=== PATIENT | male | born 1980 | race Caucasian/White ===

== ENCOUNTER 2021-04-22 01:34 | Inpatient (IN) | payer OTHER ==
[~2021-04-22] VITALS: Ht 167.6 cm; Wt 152.2 kg
[2021-04-22] VITALS (7 sets, daily range): BP systolic 112–173; BP diastolic 56–78
[2021-04-22] MEDS ORDERED: HYDR-2868 PO (02:51)
[2021-04-22] MEDS ORDERED: NYST15OI TP (02:51)
[2021-04-22] MEDS ORDERED: ASCO500T3 PO (02:51)
[2021-04-22] MEDS ORDERED: OXYC5CAP PO (02:51)
[2021-04-22] MEDS ORDERED: ASPI-886 PO (02:51)
[2021-04-22] MEDS ORDERED: MULT-638 PO (02:51)
[2021-04-22] MEDS ORDERED: LOSA25TA PO (02:51)
[2021-04-22] MEDS ORDERED: ACET325T21 PO (02:51)
[2021-04-22] MEDS ORDERED: DOXY100T PO (02:51)
[2021-04-22] MEDS ORDERED: BUPR150T15 PO (02:51)
[2021-04-22] MEDS ORDERED: ZINC220C4 PO (02:51)
[2021-04-22] MEDS ORDERED: VENTOLIN HFA18 GM INH (02:51)
[2021-04-22] MEDS ORDERED: POLY17PO29 PO (02:51)
[2021-04-22] MEDS ORDERED: PRED20TA PO (02:51)
[2021-04-22] MEDS ORDERED: ATOR40TA59 PO (02:51)
[2021-04-22] MEDS ORDERED: MUPI22OI2 TP (02:51)
[2021-04-22] MEDS ORDERED: BETA15CR4 TP (02:51)
[2021-04-22] MEDS ORDERED: TRAM50TA PO (02:51)
[2021-04-22] MEDS ORDERED: WARF-31 PO ×2 (02:51)
[2021-04-22] MEDS ORDERED: PANT40TA77 PO (02:51)
[2021-04-22] MEDS ORDERED: MELA3TAB4 PO (02:51)
[2021-04-22] MEDS ORDERED: WARF3TAB50 PO (02:51)
[2021-04-22] MEDS ORDERED: CARB15DR3 EACHEYE (02:51)
[2021-04-22] MEDS ORDERED: SPIR50TA4 PO (02:51)
[2021-04-22] MEDS ORDERED: FURO80TA72 PO (02:51)
[2021-04-22] MEDS ORDERED: CHOL10004 PO (02:51)
[2021-04-22] MEDS ORDERED: FERR325T14 PO (02:51)
[2021-04-22] MEDS ORDERED: BUDE10.2 IH (02:51)
[2021-04-22] MEDS ORDERED: CARV6.2511 PO (02:51)
[2021-04-22] MEDS ORDERED: IPRA3AMP29 NEB (02:57)
[2021-04-22] MEDS ORDERED: VITS42.55 TP (02:57)
[2021-04-22 05:01] LABS: BASO % 0 % (0-3); EOS % 0 % (0-3); HEMOGLOBIN 9.2 g/dL (13.0-17.5); LYMPH # 0.7 x10^3/uL (1.0-4.8); LYMPH % 6 % (24-48); MEAN CORPUSCULAR HEMOGLOBIN 24 pg (25-35); MEAN CORPUSCULAR HGB CONC 31 g/dL (31-37); MEAN CORPUSCULAR VOLUME 79 fL (79-100); MONO # 0.6 x10^3/uL (0.0-1.1); MONO % 5 % (0-9); NEUT # 9.9 x10^3/uL (1.8-7.7); NEUT % 88 % (31-73); PLATELET COUNT 411 x10^3/uL (140-400); RED BLOOD COUNT 3.81 x10^6/uL (4.30-5.70); WHITE BLOOD COUNT 11.3 x10^3/uL (4.0-11.0)
[2021-04-22 05:28] LABS: ALBUMIN 2.9 g/dL (3.4-5.0); ALBUMIN/GLOBULIN RATIO 0.6 (1.0-1.7); CALCIUM 9.1 mg/dL (8.5-10.1); CREATININE 0.6 mg/dL (0.7-1.3); POTASSIUM 4.3 mmol/L (3.5-5.1); TOTAL BILIRUBIN 0.9 mg/dL (0.2-1.0); TOTAL PROTEIN 7.9 g/dL (6.4-8.2)
[2021-04-22 05:29] LABS: PROTHROMBIN TIME PATIENT 24.4 SEC (11.7-14.0)
[2021-04-22 09:12] LABS: BASE EXCESS ABG 17 mmol/L (-3-3); HCO3 ABG 45 mmol/L (21-28); PO2 ABG 79 mmHg (75-108); SAT O2 ABG 95 % (92-99)
[2021-04-22 09:29] LABS: FIO2 ABG 45; PCO2 ABG 73 mmHg (35-46)
[2021-04-22] MEDS ORDERED: PIP/TAZO PER PHARMACY MC PRN (09:30)
--- NOTE | 2021-04-22 09:42 | CONS ---
DATE OF CONSULTATION: 04/22/2021 PULMONARY CONSULTATION ATTENDING PHYSICIAN: Dr. Hampton. REASON FOR CONSULTATION: Respiratory failure. HISTORY OF PRESENT ILLNESS: The patient is a 41-year-old morbidly obese male with a BMI of 125. The patient has a history of anemia, dyslipidemia, hypertension, DVT, for which he is on Coumadin and morbid obesity. He presented to [facility] with shortness of breath. The patient has some cough. No chest pain. No fever, no chills. He is vaccinated with COVID. His arterial blood gases were highly abnormal with a pH of 7.31 with a pCO2 of 99 and a pO2 of 88 on 50% FiO2. He is now transferred to our facility for further care. He is awake, following commands. Currently, he is on BiPAP at a pressure of 24/6, rate of 20, and 45% FiO2. Arterial blood gases have been drawn and they are pending. His chest x-ray from [place] was reviewed. It shows bilateral infiltrates with more lung infiltrates on the right side. The patient denies any nausea, vomiting. No diarrhea, no dysuria. PAST MEDICAL HISTORY: Significant for anemia, history of DVT/ PE, hypertension, morbid obesity. History of obstructive sleep apnea, but not on CPAP or BiPAP. PAST SURGICAL HISTORY: Cholecystectomy. SOCIAL HISTORY: Nonsmoker. ALLERGIES: VANCOMYCIN. REVIEW OF SYSTEMS: A 12-point system obtained. Pertinent positives discussed in my present illness, otherwise noncontributory. All systems that were negative, were reviewed as well. MEDICATIONS: From [facility] were reviewed. FAMILY HISTORY: Noncontributory to lungs. PHYSICAL EXAMINATION: GENERAL: He is awake, following commands, on BiPAP. VITAL SIGNS: Blood pressure is stable, in fact systolic on the high side, pulse ox is 98%. Afebrile with a T-max of 99. NECK: Supple. LUNGS: With diminished breath sounds bilaterally. CARDIOVASCULAR: With a regular rate. ABDOMEN: Soft, markedly obese. EXTREMITIES: With lymphedema of lower extremity. LABORATORY DATA: Reviewed. White cell count 11.3, hemoglobin 9.2 and platelets are 411. BUN 17, creatinine 0.6. INR is 2.2. IMPRESSION: 1. Acute on chronic hypercapnic respiratory failure, likely secondary to combination of cor pulmonale as well as possible pneumonia. 2. Morbidly obese with a body mass index of 125 and history of obstructive sleep apnea and obesity hypoventilation syndrome. The patient is not on CPAP or BiPAP. 3. Abnormal chest x-ray consistent with congestive heart failure, but cannot exclude pneumonia. 4. Mild leukocytosis. 5. History of deep venous thrombosis/ PE, for which he is on Coumadin with therapeutic INR. 6. The patient is updated on COVID vaccine. RECOMMENDATIONS: 1. Continue present BiPAP at the present setting. Follow ABGs and make necessary adjustments. 2. Advanced directives were discussed with the patient and he wants to be full code. 3. Diuresis. 4. Obtain echocardiogram. 5. Empiric antibiotic, Zosyn. 6. Continue Coumadin and follow INR per PCP. Discussed with Dr. Hampton, discussed with the patient, discussed with RN. Chart reviewed, imaging studies reviewed. Critical care time 35 minutes including decision making. MICHELLE GARCIA: [place] TID: [id number] [facility]
[2021-04-22] MEDS ORDERED: POLYETHYLENE GLYCOL 3350 17 GM PACKET. PO PRN (09:45)
[2021-04-22] MEDS ORDERED: VITS A & D/LANOLIN TOPICAL OINTMENT 42GM TUBE. TP PRN (09:45)
[2021-04-22] MEDS ORDERED: NON FORMULARY ITEM (Albuterol Sulfate (Ventolin Hfa Inhaler) 2 PUFF) INH SCH (09:45)
[2021-04-22] MEDS ORDERED: NYSTATIN 100,000 UNIT/GM TOPICAL OINTMENT 15GM TUBE. TP PRN (09:45)
[2021-04-22] MEDS ORDERED: hydrALAZINE 25 MG TABLET PO PRN (09:45)
[2021-04-22] MEDS ORDERED: ACETAMINOPHEN 325 MG TABLET. PO PRN (09:45)
[2021-04-22] MEDS ORDERED: traMADol 50 MG TABLET PO PRN (09:45)
[2021-04-22] MEDS ORDERED: ALBUTEROL SULFATE 2.5 MG/3 ML NEBU. NEB PRN (10:00)
[2021-04-22] MEDS ORDERED: DEXTROSE 50% 25 GM / 50ML DISP.SYRIN. IV PRN (10:00)
[2021-04-22] MEDS ORDERED: FUROSEMIDE 40 MG/4 ML VIAL. IVP ONE (10:00)
--- NOTE | 2021-04-22 10:15 | HP ---
ADMIT DATE: 04/22/2021 HISTORY OF PRESENT ILLNESS: The patient is a 41-year-old male patient, resident at [facility] who was brought to the Emergency Room of [facility] with a complaint of shortness of breath. However, he denied any chest pain. Denied any cough, phlegm or hemoptysis. He was extensively evaluated in the Emergency Room and had chest x-ray and lab work including blood gases, was diagnosed with acute on chronic hypoxic hypercapnic respiratory failure, mild leukocytosis, anemia and super morbid obesity, was started on BiPAP machine and was treated for healthcare-associated pneumonia and was transferred to [facility] for further evaluation and treatment. PAST MEDICAL HISTORY: Significant for hypertension, hyperlipidemia, chronic anemia, congestive heart failure, lymphedema, super morbid obesity and obstructive sleep apnea. He is normally on 5 liters nasal cannula. He has DVT and pulmonary embolism, for which he is on Coumadin. PAST SURGICAL HISTORY: Significant for cholecystectomy and surgery for gastric ulcer. ALLERGIES: HE IS ALLERGIC TO VANCOMYCIN. FAMILY HISTORY: Noncontributory. SOCIAL HISTORY: He is a resident at [facility], has been a resident there since January of this year. He does not smoke, drink alcohol or use recreational drugs. REVIEW OF SYSTEMS: As per history of present illness. PHYSICAL EXAMINATION: GENERAL: On arrival to the Emergency Room, the patient looked well and was clearly in no apparent respiratory distress. He was pale. No jaundice, cyanosis. No lymphadenopathy, no thyromegaly, no jugular venous distention. No limb edema. VITAL SIGNS: His heart rate was 84, blood pressure was 165/82, temperature was 98.4, respiratory rate was 18 and oxygen saturation was 95% on BiPAP machine. HEAD, EYES, EARS, NOSE, AND THROAT: Showed normocephalic, atraumatic. NECK: Supple. HEART: Showed distant first and second heart sounds. No gallop, rub or murmur. CHEST: Shows central trachea, equally reduced chest expansion, reduced air entry, vesicular breath sounds. I could not really appreciate any crepitation or rhonchi anteriorly. ABDOMEN: Usually distended, soft, nontender. NEUROLOGIC: He is awake, alert, responding appropriately. All cranial nerves intact. He is apparently able to move his extremities without difficulty, although he is mostly bedbound. SKIN: Has multiple wounds in the posterior aspect of his thighs. LABORATORY WORK: On arrival there showed a serum sodium 138, potassium 4, chloride 96, bicarbonate 42, anion gap of 0, BUN 21, creatinine 0.6. Estimated GFR was 150 mL per minute. His glucose was 181. Lactic acid is 1.3, calcium was 8.4. Total bilirubin is normal. AST, ALT, alkaline phosphatase slightly elevated. His beta natriuretic peptide was 395. Total protein 7.4, albumin is 3. His white cell count was 12,100, hemoglobin 9.7, hematocrit 32, MCV 80 and platelet count of 407,000 with normal manual differential. His prothrombin time/INR and APTT are all elevated. He is on Coumadin and his INR is within therapeutic range. His arterial blood gases initially showed a pH of 7.31, pCO2 of 99, pO2 of 88, bicarbonate 50 and oxygen saturation was 95% on FiO2 of 50%. His urinalysis showed the urine was yellow, clear with a pH of 5, specific gravity of 1.015. The urine was negative for protein, glucose, ketones, small amount of blood, negative for nitrite and bilirubin. There are no leukocyte esterase, 1-2 rbc's, 0 wbc's and 0 bacteria. His coronavirus by PCR and rapid testing both were negative. His chest x-ray showed the patient appears to have fairly extensive infiltrate through the right lung. The upper left lung appears relatively clear, but the left base is poorly seen. The heart is likely to at least mildly enlarged. ASSESSMENT AND PLAN: The patient was started on BiPAP machine. He was treated with IV antibiotic in the form of Zosyn and ciprofloxacin, received also dexamethasone and was transferred to [facility] with acute on chronic hypoxic hypercapnic respiratory failure, super morbid obesity. He has also healthcare-associated pneumonia, deep venous thrombosis and pulmonary embolism, hypertension, hyperlipidemia. My plan is to continue with IV antibiotic for healthcare-associated pneumonia. Continue with BiPAP machine. Continue with Coumadin and adjust the dose to maintain INR between 2 to 2.5. I will contact [facility] to get the list of his medication. RAYO GARCIA: Radha TID: [id number]
[2021-04-22 10:36] LABS: % BANDS 2 % (0-9); % LYMPHS 5 % (24-48); % MONOS 4 % (0-10); % SEGS 89 % (35-66); ANISOCYTOSIS SLIGHT; PLT ESTIMATE ADEQUATE (ADEQUATE)
[2021-04-22 10:37] LABS: POLYCHROMASIA SLIGHT
[2021-04-22] MEDS: MULTIVITAMIN with MINERAL TABLET. PO SCH (10:39)
[2021-04-22] MEDS: CARVEDILOL 6.25 MG TABLET. PO SCH ×2 (10:39→17:18)
[2021-04-22] MEDS: SPIRONOLACTONE 25 MG TABLET PO SCH (10:39)
[2021-04-22] MEDS: ASCORBIC ACID 500 MG TABLET PO SCH (10:39)
[2021-04-22] MEDS: FERROUS SULFATE 325 MG TABLET. PO SCH ×2 (10:39→17:19)
[2021-04-22] MEDS: ZINC SULFATE 220 MG CAPSULE. PO SCH (10:46)
[2021-04-22] MEDS: DOXYCYCLINE HYCLATE 100 MG TABLET PO SCH ×2 (10:46→22:13)
[2021-04-22] MEDS: buPROPion XL 150 MG TAB.ER.24H. PO SCH (10:46)
[2021-04-22] MEDS: CHOLECALCIFEROL (VITAMIN D3) 1,000 UNIT TABLET PO SCH (10:46)
[2021-04-22] MEDS: PANTOPRAZOLE 40 MG TABLET.DR. PO SCH (10:46)
[2021-04-22] MEDS: oxyCODONE IR 5 MG TABLET PO SCH ×3 (10:46→22:14)
[2021-04-22] MEDS: ASPIRIN ENTERIC COATED 81 MG TABLET.DR. PO SCH (10:46)
[2021-04-22] MEDS: BETAMETHASONE DP AUGMENTED 0.05% 15gm CREAM TUBE. TP SCH ×2 (11:00→21:00)
[2021-04-22] MEDS: MUPIROCIN 2 % OINTMENT 22GM TUBE. TP SCH (11:00)
[2021-04-22] MEDS: IPRATRPIUM/ALBUTEROL 0.5/2.5MG 3 ML NEBU. NEB SCH ×3 (12:00→20:50)
[2021-04-22] MEDS: PIPERACILLIN/TAZOBACTAM 3.375 GM in IV NORMAL SALINE 50ML 50 ML IV SCH ×3 (12:18→23:45)
[2021-04-22] MEDS: POLYVINYL ALCOHOL 1.4% OPHTH SOLUTION 15ML BOTTLE. OU SCH ×2 (14:00→21:00)
[2021-04-22] MEDS ORDERED: WARFARIN 5 MG TABLET. PO SCH (16:00)
[2021-04-22] MEDS ORDERED: WARFARIN 7.5 MG TABLET. PO SCH (16:00)
[2021-04-22] MEDS: BUDESONIDE 0.5 MG/2 ML NEBU. NEB SCH ×2 (16:35→20:50)
[2021-04-22] MEDS: predniSONE 20 MG TABLET PO SCH (17:19)
[2021-04-22] MEDS: FUROSEMIDE 80 MG TABLET. PO SCH (17:19)
--- NOTE | 2021-04-22 17:51 | NUR ---
PT TACHYCARDIC UPON DR LORENZ AND THIS RN SEEING HIM THIS MORNING, EKG ORDERED, ST WITH PACS. PT FLIPPED BACK OUT OF IT TO SR WITH PACS FOR MOST OF THE DAY UNTIL ABOUT 1700 THIS EVENING. THEN PT WENT INTO ST WITH PACS IN THE 140S TO 150S AGAIN. PAGED DR LORENZ, ORDER FOR DIGOXIN RECEIVED AND AM CARDIOLOGY CONSULT. PT IS ASYMPTOMATIC.
[2021-04-22] MEDS ORDERED: DIGOXIN IV 500 MCG/2 ML AMPUL. IV ONE (18:30)
[2021-04-22] MEDS ORDERED: DOXYCYCLINE HYCLATE 100 MG TABLET PO SCH (21:00)
[2021-04-22] MEDS ORDERED: NON FORMULARY ITEM (Melatonin 1 TAB) PO SCH (21:00)
[2021-04-22] MEDS: ATORVASTATIN CALCIUM 40 MG TABLET. PO SCH (22:13)
[2021-04-22] MEDS: LOSARTAN POTASSIUM 25 MG TABLET. PO SCH (22:13)
[2021-04-22] MEDS: DIGOXIN IV 500 MCG/2 ML AMPUL. IV SCH (23:45)
[2021-04-23 02:32] VITALS: BP 130/63
[2021-04-23] MEDS: PIPERACILLIN/TAZOBACTAM 3.375 GM in IV NORMAL SALINE 50ML 50 ML IV SCH ×3 (06:02→18:30)
[2021-04-23] MEDS: DIGOXIN IV 500 MCG/2 ML AMPUL. IV SCH (06:03)
[2021-04-23 07:00] VITALS: BP 183/67
[2021-04-23] MEDS: IPRATRPIUM/ALBUTEROL 0.5/2.5MG 3 ML NEBU. NEB SCH ×4 (07:20→21:24)
[2021-04-23] MEDS: BUDESONIDE 0.5 MG/2 ML NEBU. NEB SCH ×2 (07:20→21:25)
[2021-04-23 07:34] LABS: BASO % 0 % (0-3); EOS % 0 % (0-3); HEMOGLOBIN 9.5 g/dL (13.0-17.5); LYMPH # 1.1 x10^3/uL (1.0-4.8); LYMPH % 14 % (24-48); MEAN CORPUSCULAR HEMOGLOBIN 25 pg (25-35); MEAN CORPUSCULAR HGB CONC 32 g/dL (31-37); MEAN CORPUSCULAR VOLUME 78 fL (79-100); MONO # 0.7 x10^3/uL (0.0-1.1); MONO % 9 % (0-9); NEUT # 6.4 x10^3/uL (1.8-7.7); NEUT % 77 % (31-73); PLATELET COUNT 381 x10^3/uL (140-400); RED BLOOD COUNT 3.82 x10^6/uL (4.30-5.70); RED CELL DISTRIBUTION WIDTH 18.9 % (11.5-14.5); WHITE BLOOD COUNT 8.2 x10^3/uL (4.0-11.0)
[2021-04-23 07:40] LABS: PROTHROMBIN TIME PATIENT 21.7 SEC (11.7-14.0)
[2021-04-23 07:57] LABS: ALBUMIN 2.8 g/dL (3.4-5.0); ALBUMIN/GLOBULIN RATIO 0.6 (1.0-1.7); ALK PHOS 135 U/L (46-116); ALT (SGPT) 42 U/L (16-63); AST (SGOT) 9 U/L (15-37); BLOOD UREA NITROGEN 19 mg/dL (8-26); BUN/CREATININE RATIO 24 (6-20); CALCIUM 8.9 mg/dL (8.5-10.1); CHLORIDE 95 mmol/L (98-107); CREATININE 0.8 mg/dL (0.7-1.3); GFR 107.6; GLUCOSE 126 mg/dL (70-99); POTASSIUM 4.1 mmol/L (3.5-5.1); SODIUM 139 mmol/L (136-145); TOTAL BILIRUBIN 0.9 mg/dL (0.2-1.0); TOTAL PROTEIN 7.6 g/dL (6.4-8.2)
[2021-04-23 08:00] LABS: CARBON DIOXIDE > 45 mmol/L (21-32)
[2021-04-23] MEDS: CHOLECALCIFEROL (VITAMIN D3) 1,000 UNIT TABLET PO SCH (08:02)
[2021-04-23] MEDS: MULTIVITAMIN with MINERAL TABLET. PO SCH (08:02)
[2021-04-23] MEDS: ASCORBIC ACID 500 MG TABLET PO SCH (08:02)
[2021-04-23] MEDS: SPIRONOLACTONE 25 MG TABLET PO SCH (08:03)
[2021-04-23] MEDS: FERROUS SULFATE 325 MG TABLET. PO SCH ×2 (08:03→17:12)
[2021-04-23] MEDS: oxyCODONE IR 5 MG TABLET PO SCH ×4 (08:04→20:24)
[2021-04-23] MEDS: buPROPion XL 150 MG TAB.ER.24H. PO SCH (08:04)
[2021-04-23] MEDS: MUPIROCIN 2 % OINTMENT 22GM TUBE. TP SCH (08:04)
[2021-04-23] MEDS: ASPIRIN ENTERIC COATED 81 MG TABLET.DR. PO SCH (08:04)
[2021-04-23] MEDS: CARVEDILOL 6.25 MG TABLET. PO SCH (08:04)
[2021-04-23] MEDS: BETAMETHASONE DP AUGMENTED 0.05% 15gm CREAM TUBE. TP SCH ×2 (08:04→20:24)
[2021-04-23] MEDS: ZINC SULFATE 220 MG CAPSULE. PO SCH (08:04)
[2021-04-23] MEDS: POLYVINYL ALCOHOL 1.4% OPHTH SOLUTION 15ML BOTTLE. OU SCH ×3 (08:04→20:22)
[2021-04-23] MEDS: PANTOPRAZOLE 40 MG TABLET.DR. PO SCH (08:04)
[2021-04-23] MEDS: DOXYCYCLINE HYCLATE 100 MG TABLET PO SCH ×2 (08:36→20:24)
[2021-04-23] MEDS: LACTOBACILLUS RHAMNOSUS GG 1 CAPSULE. PO SCH ×2 (09:00→20:23)
--- NOTE | 2021-04-23 10:29 | NUR ---
NURSING REC'D CALL FROM [facility] TODAY. STAFF REQUESTING UPDATE ON MARCIE. FACILITY ALSO WANTED US TO BE AWARE OF HX OF DVT, ET RECENT C/O PAIN IN (L)LE PRIOR TO ONSET OF SOA. INFORMATION PASSED ON TO DR LORENZ THIS AM DURING ROUNDS.
[2021-04-23 11:00] VITALS: BP 149/65
--- NOTE | 2021-04-23 11:04 | PN ---
DATE: 04/23/2021 SUBJECTIVE: The patient is resting, slightly propped up in bed, in no apparent distress. He is awake, alert. He is currently on 4 liters of oxygen, maintaining his oxygen saturation at 96-97%. On questioning him, he denied any chest pain or shortness of breath. OBJECTIVE: GENERAL: When I examined him, he looked well and was clearly in no apparent respiratory distress. He was pale, not jaundiced or cyanosed. No thyromegaly. No jugular venous distention. No limb edema. VITAL SIGNS: His heart rate was 108, blood pressure was 130/63, temperature was 98.1, respiratory rate 20 and oxygen saturation was 96% on 4 liters of oxygen. HEAD, EYES, EARS, NOSE AND THROAT: Normocephalic, atraumatic. NECK: Supple. HEART: Normal first and second heart sounds. No gallop or murmur. CHEST: Clear to auscultation. No crepitation or rhonchi anteriorly. ABDOMEN: Distended, soft, nontender. NEUROLOGIC: He is awake, alert, responding appropriately. He moves upper extremities to a much good extent than lower extremities. SKIN: He has multiple wounds on the posterior aspect of his right thigh. He has an indwelling Smith catheter. His intake was incompletely recorded, output was 1000. LABORATORY DATA: As of this morning, his white cell count was 8200, hemoglobin 9.5, hematocrit 30, MCV 78 and platelet count of 381,000 with normal manual differential. His chemistry showed a serum sodium 139, potassium 4.1, chloride 95, bicarbonate 45, anion gap of 0, BUN 19, creatinine 0.8. Estimated GFR was 107 mL per minute. His glucose was 126, calcium was 8.9. Total bilirubin, AST, ALT were normal. Alkaline phosphatase slightly elevated. Total protein was 7.6, albumin was 4.8. His prothrombin time was 21.7, INR 1.9. ASSESSMENT: 1. Acute on chronic hypoxic hypercapnic respiratory failure. 2. Healthcare-associated pneumonia. 3. Morbid obesity and obstructive sleep apnea. 4. The patient also has history of deep vein thrombosis and pulmonary emboli, for which he is on Coumadin. 5. Other medical problems include hypertension and hyperlipidemia. PLAN: To continue with IV antibiotic for healthcare-associated pneumonia. Continue with BiPAP machine. Continue with Coumadin and adjust Coumadin to maintain an INR between 2-2.5. JAYJAY DR: Radha TID: [id number]
--- NOTE | 2021-04-23 11:40 | PDOC2 ---
PATRICK GAUTHIER FAMILY [employer] PAR[employer]GAL 04/23/21 1140: CARDIAC CONSULT DATE OF CONSULT Date of Consult DATE: 04/23/21 TIME: 11:33 REASON FOR CONSULT Reason for Consult: Tachycardia REFERRING PHYSICIAN Referring Physician: Dr. Hampton SOURCE Source: Chart review, Patient HISTORY OF PRESENT ILLNESS HISTORY OF PRESENT ILLNESS This is a 41 yo male who presented to [facility] secondary to shortness of breath. His ABG's were significantly abnormal and he was transferred to [facility] for higher level of care. Was noted to be tachycardic, which prompted this consult. Tele shows periods of PAFIB with RVR, otherwise is SR. No previous h/o AFIB. Reports breathing has improved. Is on chronic O2 at nursing facility. He denies any chest pain, dizziness, diaphoresis, or nausea/vomiting.. PAST MEDICAL HISTORY Past Medical History Morbid obestiy DVT/PE on warfarin therapy Hypertension Hyperlipidemia GERD Depression Anemia CHF JOSE PAST SURGICAL HISTORY Past Surgical History: Cholecystectomy FAMILY HISTORY Family History: Other (noncontributory to CV ) SOCIAL HISTORY Smoke: No ALCOHOL: none Drugs: None Lives: [facility] CURRENT MEDICATIONS CURRENT MEDICATIONS Current Medications Medications (Trade) Dose Ordered Sig/Faraz Route PRN Reason Start Time Stop Time Status Last Admin Dose Admin Piperacillin Sod/ Tazobactam Sod 3.375 gm/Sodium Chloride 50 ml @ 100 mls/hr Q6HRS IV 04/22/21 12:00 04/23/21 06:02 Atorvastatin Calcium (Lipitor) 40 mg HS PO 04/22/21 21:00 04/22/21 22:13 Furosemide (Lasix) 80 mg DAILY16 PO 04/22/21 16:00 04/22/21 17:19 Losartan Potassium (Cozaar) 25 mg HS PO 04/22/21 21:00 04/22/21 22:13 Prednisone (Prednisone) 40 mg DAILY16 PO 04/22/21 16:00 04/22/21 17:19 Glycerin/ Hypromellose/ Polyethylene (Artificial Tears) 1 drop TID OU 04/22/21 14:00 04/23/21 08:04 Warfarin Sodium (Coumadin) 7.5 mg QTUTHSASU PO 04/22/21 16:00 04/22/21 17:18 Albuterol/ Ipratropium (Duoneb) 3 ml RTQID NEB 04/22/21 12:00 04/23/21 07:20 Warfarin Sodium (Coumadin) 5 mg QTUTHSASU PO 04/22/21 16:00 04/22/21 17:19 Digoxin (Lanoxin) 500 mcg 1X ONCE IV 04/22/21 18:30 04/22/21 18:31 DC 04/22/21 18:22 Digoxin (Lanoxin) 250 mcg Q6HRS IV 04/23/21 00:00 04/23/21 06:01 DC 04/23/21 06:03 ALLERGIES ALLERGIES: Coded Allergies: vancomycin (Verified Allergy, Intermediate, 04/22/21) ROS Review of System 14 point ROS conducted with pertinent positives noted above in hPI PHYSICAL EXAM General: Alert, Oriented X3, Cooperative HEENT: Atraumatic Lungs: Other (diminished ) Heart: Other (AFIB with controlled rate ) Abdomen: Soft, Other (obese) Extremities: Other (lymphedema ) Skin: Other (wounds to posterior thighs ) Neuro: Normal speech, Sensation intact Psych/Mental Status: Mental status NL, Mood NL MUSCULOSKELETAL: Osteoarthritic changes both hands VITALS/I&O VITALS/I&O: Vital Signs Date Time Temp Pulse Resp B/P (MAP) Pulse Ox O2 Delivery O2 Flow Rate FiO2 04/23/21 11:00 97.8 84 20 149/65 (93) 97 Nasal Cannula 4.0 97.8 I & O 04/22/21 04/22/21 04/23/21 15:00 23:00 07:00 Intake Total 50 ml 150 ml 100 ml Output Total 1900 ml 3225 ml 2000 ml Balance -1850 ml -3075 ml -1900 ml LABS Lab: Laboratory Tests Test 04/23/21 06:20 White Blood Count 8.2 x10^3/uL (4.0-11.0) Red Blood Count 3.82 x10^6/uL (4.30-5.70) L Hemoglobin 9.5 g/dL (13.0-17.5) L Hematocrit 30.0 % (39.0-53.0) L Mean Corpuscular Volume 78 fL (79-100) L Mean Corpuscular Hemoglobin 25 pg (25-35) Mean Corpuscular Hemoglobin Concent 32 g/dL (31-37) Red Cell Distribution Width 18.9 % (11.5-14.5) H Platelet Count 381 x10^3/uL (140-400) Neutrophils (%) (Auto) 77 % (31-73) H Lymphocytes (%) (Auto) 14 % (24-48) L Monocytes (%) (Auto) 9 % (0-9) Eosinophils (%) (Auto) 0 % (0-3) Basophils (%) (Auto) 0 % (0-3) Neutrophils # (Auto) 6.4 x10^3/uL (1.8-7.7) Lymphocytes # (Auto) 1.1 x10^3/uL (1.0-4.8) Monocytes # (Auto) 0.7 x10^3/uL (0.0-1.1) Eosinophils # (Auto) 0.0 x10^3/uL (0.0-0.7) Basophils # (Auto) 0.0 x10^3/uL (0.0-0.2) Prothrombin Time 21.7 SEC (11.7-14.0) H Prothrombin Time INR 1.9 (0.8-1.1) H Sodium Level 139 mmol/L (136-145) Potassium Level 4.1 mmol/L (3.5-5.1) Chloride Level 95 mmol/L (98-107) L Carbon Dioxide Level > 45 mmol/L (21-32) H Anion Gap (6-14) Blood Urea Nitrogen 19 mg/dL (8-26) Creatinine 0.8 mg/dL (0.7-1.3) Estimated GFR (Cockcroft-Gault) 107.6 BUN/Creatinine Ratio 24 (6-20) H Glucose Level 126 mg/dL (70-99) H Calcium Level 8.9 mg/dL (8.5-10.1) Total Bilirubin 0.9 mg/dL (0.2-1.0) Aspartate Amino Transferase (AST) 9 U/L (15-37) L Alanine Aminotransferase (ALT) 42 U/L (16-63) Alkaline Phosphatase 135 U/L (46-116) H Total Protein 7.6 g/dL (6.4-8.2) Albumin 2.8 g/dL (3.4-5.0) L Albumin/Globulin Ratio 0.6 (1.0-1.7) L Laboratory Tests 04/23/21 06:20 Laboratory Tests 04/23/21 06:20 ASSESSMENT/PLAN ASSESSMENT/PLAN 1. Acute on chronic respiratory failure; multifactorial with right heart failure, obesity-hypoventilation syndrome, JOSE, and possibly PNA. COVID negative 2. Acute on chronic probable diastolic CHF 3. PAFIB; new finding. presently AFIB with controlled rate. Periods of RVR noted overnight on tele. 4. Morbid obesity, hypoventilation syndrome, JOSE 5. Hypertension; controlled overall 6. Hyperlipidemia; statin 7. H/o DVT/PE; chronic OAC with warfarin Recommendations Convert Coreg to metoprolol for better rate control BiPAP support at HS Warfarin for stroke prophylaxis. Weight loss Supportive care MASSIEL BEAULIEU MD 04/23/21 1738: CARDIAC CONSULT ASSESSMENT/PLAN ASSESSMENT/PLAN Patient seen and examined I agree with our nurse practitioners assessment and plan. Acute on chronic respiratory failure; multifactorial with right heart failure, obesity-hypoventilation syndrome, JOSE, and possibly PNA. COVID negative Acute on chronic probable diastolic CHF PAFIB; new finding. presently AFIB with controlled rate. Periods of RVR noted overnight on tele. Adjusting beta-charlotte to metoprolol. Morbid obesity, hypoventilation syndrome, JOSE Hypertension; controlled Hyperlipidemia; statin H/o DVT/PE; chronic OAC with warfarin PATRICK GAUTHIER APRN Apr 23, 2021 11:40 MASSIEL BEAULIEU MD Apr 23, 2021 17:38
--- NOTE | 2021-04-23 11:45 | NUR ---
SS following for discharge planning. SS reviewed pt chart and discussed with pt RN. Pt is LTC resident from [facility], ; fax [phone]. Pt is currently requiring oxygen at four liters nasal canula. Pt on IV Zosyn. Pt approximately 785 pounds. Clinical updates phoned and faxed to [facility]. SS will continue to follow for discharge planning.
--- NOTE | 2021-04-23 12:18 | PDOC ---
PULMONARY PROGRESS NOTES DATE: 04/23/21 TIME: 12:15 Subjective Doing well on nasal cannula during the day with BiPAP at nighttime Vitals Vital Signs Date Time Temp Pulse Resp B/P (MAP) Pulse Ox O2 Delivery O2 Flow Rate FiO2 04/23/21 11:40 95 Nasal Cannula 4.0 04/23/21 11:00 97.8 84 20 149/65 (93) 97.8 General: Alert, No acute distress Lungs: Clear Cardiovascular: S1 Abdomen: Soft, Other (Morbidly obese) Extremities: Other (Lower extremity lymphedema) Skin: Warm Labs Laboratory Tests Test 04/22/21 04:00 04/22/21 09:07 04/22/21 10:43 04/23/21 06:20 White Blood Count 11.3 x10^3/uL (4.0-11.0) 8.2 x10^3/uL (4.0-11.0) Red Blood Count 3.81 x10^6/uL (4.30-5.70) 3.82 x10^6/uL (4.30-5.70) Hemoglobin 9.2 g/dL (13.0-17.5) 9.5 g/dL (13.0-17.5) Hematocrit 30.0 % (39.0-53.0) 30.0 % (39.0-53.0) Mean Corpuscular Volume 79 fL (79-100) 78 fL (79-100) Mean Corpuscular Hemoglobin 24 pg (25-35) 25 pg (25-35) Mean Corpuscular Hemoglobin Concent 31 g/dL (31-37) 32 g/dL (31-37) Red Cell Distribution Width 19.0 % (11.5-14.5) 18.9 % (11.5-14.5) Platelet Count 411 x10^3/uL (140-400) 381 x10^3/uL (140-400) Neutrophils (%) (Auto) 88 % (31-73) 77 % (31-73) Lymphocytes (%) (Auto) 6 % (24-48) 14 % (24-48) Monocytes (%) (Auto) 5 % (0-9) 9 % (0-9) Eosinophils (%) (Auto) 0 % (0-3) 0 % (0-3) Basophils (%) (Auto) 0 % (0-3) 0 % (0-3) Neutrophils # (Auto) 9.9 x10^3/uL (1.8-7.7) 6.4 x10^3/uL (1.8-7.7) Lymphocytes # (Auto) 0.7 x10^3/uL (1.0-4.8) 1.1 x10^3/uL (1.0-4.8) Monocytes # (Auto) 0.6 x10^3/uL (0.0-1.1) 0.7 x10^3/uL (0.0-1.1) Eosinophils # (Auto) 0.0 x10^3/uL (0.0-0.7) 0.0 x10^3/uL (0.0-0.7) Basophils # (Auto) 0.0 x10^3/uL (0.0-0.2) 0.0 x10^3/uL (0.0-0.2) Segmented Neutrophils % 89 % (35-66) Band Neutrophils % 2 % (0-9) Lymphocytes % 5 % (24-48) Monocytes % 4 % (0-10) Platelet Estimate Adequate (ADEQUATE) Polychromasia Slight Basophilic Stippling Present Anisocytosis Slight Prothrombin Time 24.4 SEC (11.7-14.0) 21.7 SEC (11.7-14.0) Prothromb Time International Ratio 2.2 (0.8-1.1) 1.9 (0.8-1.1) Sodium Level 139 mmol/L (136-145) 139 mmol/L (136-145) Potassium Level 4.3 mmol/L (3.5-5.1) 4.1 mmol/L (3.5-5.1) Chloride Level 95 mmol/L (98-107) 95 mmol/L (98-107) Carbon Dioxide Level 42 mmol/L (21-32) > 45 mmol/L (21-32) Anion Gap 2 (6-14) (6-14) Blood Urea Nitrogen 17 mg/dL (8-26) 19 mg/dL (8-26) Creatinine 0.6 mg/dL (0.7-1.3) 0.8 mg/dL (0.7-1.3) Estimated GFR (Cockcroft-Gault) 150.0 107.6 BUN/Creatinine Ratio 28 (6-20) 24 (6-20) Glucose Level 140 mg/dL (70-99) 126 mg/dL (70-99) Calcium Level 9.1 mg/dL (8.5-10.1) 8.9 mg/dL (8.5-10.1) Total Bilirubin 0.9 mg/dL (0.2-1.0) 0.9 mg/dL (0.2-1.0) Aspartate Amino Transf (AST/SGOT) 31 U/L (15-37) 9 U/L (15-37) Alanine Aminotransferase (ALT/SGPT) 59 U/L (16-63) 42 U/L (16-63) Alkaline Phosphatase 147 U/L (46-116) 135 U/L (46-116) JS-Pbr-N-Type Natriuretic Peptide 461 pg/mL (0-124) Total Protein 7.9 g/dL (6.4-8.2) 7.6 g/dL (6.4-8.2) Albumin 2.9 g/dL (3.4-5.0) 2.8 g/dL (3.4-5.0) Albumin/Globulin Ratio 0.6 (1.0-1.7) 0.6 (1.0-1.7) Procalcitonin < 0.10 ng/mL (0.00-0.10) O2 Saturation 95 % (92-99) Arterial Blood pH 7.41 (7.35-7.45) Arterial Blood pCO2 at Patient Temp 73 mmHg (35-46) Arterial Blood pO2 at Patient Temp 79 mmHg (75-108) Arterial Blood HCO3 45 mmol/L (21-28) Arterial Blood Base Excess 17 mmol/L (-3-3) FiO2 45 Glucose (Fingerstick) 127 mg/dL (70-99) Laboratory Tests Test 04/23/21 06:20 White Blood Count 8.2 x10^3/uL (4.0-11.0) Red Blood Count 3.82 x10^6/uL (4.30-5.70) Hemoglobin 9.5 g/dL (13.0-17.5) Hematocrit 30.0 % (39.0-53.0) Mean Corpuscular Volume 78 fL (79-100) Mean Corpuscular Hemoglobin 25 pg (25-35) Mean Corpuscular Hemoglobin Concent 32 g/dL (31-37) Red Cell Distribution Width 18.9 % (11.5-14.5) Platelet Count 381 x10^3/uL (140-400) Neutrophils (%) (Auto) 77 % (31-73) Lymphocytes (%) (Auto) 14 % (24-48) Monocytes (%) (Auto) 9 % (0-9) Eosinophils (%) (Auto) 0 % (0-3) Basophils (%) (Auto) 0 % (0-3) Neutrophils # (Auto) 6.4 x10^3/uL (1.8-7.7) Lymphocytes # (Auto) 1.1 x10^3/uL (1.0-4.8) Monocytes # (Auto) 0.7 x10^3/uL (0.0-1.1) Eosinophils # (Auto) 0.0 x10^3/uL (0.0-0.7) Basophils # (Auto) 0.0 x10^3/uL (0.0-0.2) Prothrombin Time 21.7 SEC (11.7-14.0) Prothromb Time International Ratio 1.9 (0.8-1.1) Sodium Level 139 mmol/L (136-145) Potassium Level 4.1 mmol/L (3.5-5.1) Chloride Level 95 mmol/L (98-107) Carbon Dioxide Level > 45 mmol/L (21-32) Anion Gap (6-14) Blood Urea Nitrogen 19 mg/dL (8-26) Creatinine 0.8 mg/dL (0.7-1.3) Estimated GFR (Cockcroft-Gault) 107.6 BUN/Creatinine Ratio 24 (6-20) Glucose Level 126 mg/dL (70-99) Calcium Level 8.9 mg/dL (8.5-10.1) Total Bilirubin 0.9 mg/dL (0.2-1.0) Aspartate Amino Transf (AST/SGOT) 9 U/L (15-37) Alanine Aminotransferase (ALT/SGPT) 42 U/L (16-63) Alkaline Phosphatase 135 U/L (46-116) Total Protein 7.6 g/dL (6.4-8.2) Albumin 2.8 g/dL (3.4-5.0) Albumin/Globulin Ratio 0.6 (1.0-1.7) Medications Active Scripts Medications Dose Route/Sig Max Daily Dose Days Date Category Dose Instructions Duoneb 0.5-3(2.5) Mg/3 Ml (Albuterol/Ipratropium) 3 Ml Ampul.neb 3 Ml NEB PRN Q4HRS PRN 04/22/21 Reported A and D Ointment (Vits A and D/White Pet/Lanolin) 42.5 Gm Oint...g. 42.5 Gm TP PRN PRN 04/22/21 Reported Zinc-220 (Zinc Sulfate) 50 Mg Capsule 50 Mg PO DAILYAC 04/22/21 Reported Wellbutrin Xl (Bupropion Hcl) 150 Mg Tab.er.24h 150 Mg PO DAILY 04/22/21 Reported Ventolin Hfa Inhaler (Albuterol Sulfate) 18 Gm Hfa.aer.ad 2 Puff INH PRN Q4HRS 04/22/21 Reported Tramadol Hcl 50 Mg Tablet 50 Mg PO Q4HRS PRN 04/22/21 Reported Thera M Plus Tablet (Multivits,Ca,Minerals/Iron/FA) 1 Each Tablet 1 Each PO DAILY 04/22/21 Reported Symbicort 160-4.5 Mcg Inhaler (Budesonide/Formoterol Fumarate) 10.2 Gm Hfa.aer.ad 1 Puff IH DAILY 04/22/21 Reported Spironolactone 50 Mg Tablet 50 Mg PO DAILY 04/22/21 Reported Refresh Optive Eye Drops (Carboxymethylcellulos/Glycerin) 15 Ml Drops 1 Drop EACHEYE TID 04/22/21 Reported Prednisone 20 Mg Tablet 40 Mg PO DAILY16 04/22/21 Reported Pantoprazole Sodium (Pantoprazole Sodium) 40 Mg Tablet.dr 40 Mg PO DAILYAC 04/22/21 Reported Oxycodone Hcl 5 Mg Capsule 10 Mg PO QID 04/22/21 Reported Nystatin 15 Gm Oint...g. 15 Gm TP PRN Q12HR 04/22/21 Reported Mupirocin Ointment (Mupirocin) 22 Gm Oint...g. 1 Dennis TP DAILY 04/22/21 Reported Miralax (Polyethylene Glycol 3350) 17 Gm Powd.pack 1 Pkt PO PRN DAILY PRN 04/22/21 Reported Melatonin 3 Mg Tablet 1 Tab PO QHS 04/22/21 Reported Cozaar (Losartan Potassium) 25 Mg Tablet 25 Mg PO HS 04/22/21 Reported Lasix (Furosemide) 80 Mg Tablet 80 Mg PO DAILY16 04/22/21 Reported Hydralazine Hcl 25 Mg Tablet 25 Mg PO PRN Q8HRS PRN 04/22/21 Reported Ferrous Sulfate 325 Mg Tablet 1 Tab PO BID 04/22/21 Reported Doxycycline Hyclate 100 Mg Tablet 100 Mg PO BID 04/22/21 Reported Warfarin Sodium 5 Mg Tablet 10 Mg PO QMWF 04/22/21 Reported Warfarin Sodium 3 Mg Tablet 3 Mg PO QMWF 04/22/21 Reported Warfarin Sodium 5 Mg Tablet 12.5 Mg PO QTUTHSASU 04/22/21 Reported Vitamin D3 (Vitamin D) 25 Mcg Tablet 25 Mcg PO DAILY 04/22/21 Reported 1,000 UNITS = 25 MCG Carvedilol (Carvedilol) 6.25 Mg Tablet 6.25 Mg PO BIDWMEALS 04/22/21 Reported Betamethasone Valerate 15 Gm Cream..g. 15 Gm TP BID 04/22/21 Reported Atorvastatin Calcium 40 Mg Tablet 40 Mg PO HS 04/22/21 Reported Aspirin Ec (Aspirin) 81 Mg Tablet.dr 1 Tab PO DAILY 04/22/21 Reported Ascorbic Acid 500 Mg Tablet 500 Mg PO DAILY 04/22/21 Reported Acetaminophen 325 Mg Tablet 2 Tab PO PRN Q6HRS PRN 24 04/22/21 Reported Impression . 1. Acute on chronic hypercapnic respiratory failure, likely secondary to combination of cor pulmonale as well as possible pneumonia. 2. Morbidly obese with a body mass index of 125 and history of obstructive sleep apnea and obesity hypoventilation syndrome. The patient is not on CPAP or BiPAP. 3. Abnormal chest x-ray consistent with congestive heart failure, but cannot exclude pneumonia. 4. Mild leukocytosis. 5. History of deep venous thrombosis/ PE, for which he is on Coumadin with therapeutic INR. 6. The patient is updated on COVID vaccine. Plan . RECOMMENDATIONS: 1. Continue present BiPAP nightly with nasal cannula during the day.. ABG is significantly improved with compensated hypercapnia. 2. Advanced directives were discussed with the patient and he wants to be full code. 3. Diuresis. 4. Obtain echocardiogram. 5. Empiric antibiotic, Zosyn. Can change to p.o. 6. Continue Coumadin and follow INR per PCP. 7. Likely discharge in the next 24 hours to residential SUNITA OVALLE MD Apr 23, 2021 12:18
[2021-04-23 15:00] VITALS: BP 135/60
[2021-04-23] MEDS ORDERED: WARFARIN 5 MG TABLET. PO SCH (16:00)
[2021-04-23] MEDS ORDERED: WARFARIN 3 MG TABLET. PO SCH (16:00)
[2021-04-23] MEDS: FUROSEMIDE 80 MG TABLET. PO SCH (17:12)
[2021-04-23] MEDS: predniSONE 20 MG TABLET PO SCH (17:13)
--- NOTE | 2021-04-23 17:30 | NUR ---
Wound Care Wound Type/Assessment: Pt seen for wound care consultation, see wound assessment. Pt is morbidly obese, laying in a Compella Bariatric low airloss bed. Upon entry, pt stated he needed to have a bowel movement and stated he just normally soils himself and is cleaned up afterwards. Instructed pt that he would be placed on a bedpan instead, pt agreeable. After pt finished, he was turned onto his side x3 assist, and cleaned up. Pt has bilateral posterior upper thigh friction and shearing skin breakdown, very superficial, with multiple large papilloma-like growths on left post upper thigh. Areas cleaned and measured, Vitamin A&D ointment applied as a barrier. Pt also has some superficial areas of breakdown on bilateral cheeks from the Bipap mask, Stage II pressure injuries. Areas cleaned, measured and photographed. Wound beds red, no warmth or fluctuance noted. Treatment Recommendations/Plan: Recommend A&D ointment to posterior thigh areas BID and PRN. Recommended hydrocolloid strips to bilateral cheeks, but pt declined, stating he only wants a dressing on at night while the Bipap is on. Recommend cutting a small Aquacel foam adhesive in half and applying over each side of cheek prior to applying Bipap at HS, pt agreeable. Education provided: to pt and RN re: POC Offloading surface/device: Compella bed, multiple pillows and wedges for offloading Recommended Referrals/Tests: n/a Discharge Recommendations for dressings: same as treatment plan above
[2021-04-23 19:00] VITALS: BP 135/60
[2021-04-23] MEDS: LOSARTAN POTASSIUM 25 MG TABLET. PO SCH (20:22)
[2021-04-23] MEDS: METOPROLOL TART IMMED RELEASE 50 MG TABLET. PO SCH (20:23)
[2021-04-23] MEDS: ATORVASTATIN CALCIUM 40 MG TABLET. PO SCH (20:23)
[2021-04-23] MEDS: VITS A & D/LANOLIN TOPICAL OINTMENT 42GM TUBE. TP SCH (20:24)
[2021-04-23 23:32] VITALS: BP 153/64
[2021-04-24] MEDS: PIPERACILLIN/TAZOBACTAM 3.375 GM in IV NORMAL SALINE 50ML 50 ML IV SCH ×2 (00:55→05:21)
[2021-04-24 01:11] LABS: HEMOGLOBIN A1C 5.9 % (4.8-5.6)
[2021-04-24 02:05] VITALS: BP 137/72
[2021-04-24] MEDS: ZINC SULFATE 220 MG CAPSULE. PO SCH ×2 (06:27→08:50)
[2021-04-24] MEDS: PANTOPRAZOLE 40 MG TABLET.DR. PO SCH (06:27)
[2021-04-24 07:00] VITALS: BP 157/72
[2021-04-24 07:16] LABS: HEMATOCRIT 31.8 % (39.0-53.0); HEMOGLOBIN 9.9 g/dL (13.0-17.5); RED BLOOD COUNT 4.07 x10^6/uL (4.30-5.70); RED CELL DISTRIBUTION WIDTH 19.5 % (11.5-14.5); WHITE BLOOD COUNT 9.7 x10^3/uL (4.0-11.0)
[2021-04-24 07:24] LABS: PROTHROMBIN TIME PATIENT 19.2 SEC (11.7-14.0)
[2021-04-24] MEDS: BUDESONIDE 0.5 MG/2 ML NEBU. NEB SCH (07:44)
[2021-04-24] MEDS: IPRATRPIUM/ALBUTEROL 0.5/2.5MG 3 ML NEBU. NEB SCH ×2 (07:44→11:48)
[2021-04-24 07:49] LABS: ALBUMIN/GLOBULIN RATIO 0.6 (1.0-1.7); ALK PHOS 129 U/L (46-116); ALT (SGPT) 46 U/L (16-63); AST (SGOT) 16 U/L (15-37); BLOOD UREA NITROGEN 20 mg/dL (8-26); BUN/CREATININE RATIO 25 (6-20); CALCIUM 8.8 mg/dL (8.5-10.1); CHLORIDE 95 mmol/L (98-107); CREATININE 0.8 mg/dL (0.7-1.3); GFR 107.6; GLUCOSE 126 mg/dL (70-99); POTASSIUM 4.3 mmol/L (3.5-5.1); SODIUM 139 mmol/L (136-145); TOTAL BILIRUBIN 0.9 mg/dL (0.2-1.0); TOTAL PROTEIN 7.8 g/dL (6.4-8.2)
[2021-04-24 07:52] LABS: CARBON DIOXIDE > 45 mmol/L (21-32)
[2021-04-24] MEDS: LACTOBACILLUS RHAMNOSUS GG 1 CAPSULE. PO SCH (08:48)
[2021-04-24] MEDS: DOXYCYCLINE HYCLATE 100 MG TABLET PO SCH (08:48)
[2021-04-24] MEDS: CHOLECALCIFEROL (VITAMIN D3) 1,000 UNIT TABLET PO SCH (08:48)
[2021-04-24] MEDS: ASCORBIC ACID 500 MG TABLET PO SCH (08:49)
[2021-04-24] MEDS: FERROUS SULFATE 325 MG TABLET. PO SCH (08:49)
[2021-04-24] MEDS: ASPIRIN ENTERIC COATED 81 MG TABLET.DR. PO SCH (08:49)
[2021-04-24] MEDS: METOPROLOL TART IMMED RELEASE 50 MG TABLET. PO SCH (08:49)
[2021-04-24] MEDS: SPIRONOLACTONE 25 MG TABLET PO SCH (08:50)
[2021-04-24] MEDS: oxyCODONE IR 5 MG TABLET PO SCH (08:50)
[2021-04-24] MEDS: buPROPion XL 150 MG TAB.ER.24H. PO SCH (08:50)
[2021-04-24] MEDS: MULTIVITAMIN with MINERAL TABLET. PO SCH (08:50)
[2021-04-24] MEDS: MUPIROCIN 2 % OINTMENT 22GM TUBE. TP SCH (08:53)
[2021-04-24] MEDS: BETAMETHASONE DP AUGMENTED 0.05% 15gm CREAM TUBE. TP SCH (08:54)
[2021-04-24] MEDS: VITS A & D/LANOLIN TOPICAL OINTMENT 42GM TUBE. TP SCH (08:54)
[2021-04-24] MEDS: POLYVINYL ALCOHOL 1.4% OPHTH SOLUTION 15ML BOTTLE. OU SCH (08:54)
[2021-04-24] MEDS ORDERED: PERFLUTREN PROTEIN-A MICROSPHR 0.22 MG/ML 3 ML VIAL. IV ONE ×2 (09:45→09:59)
[2021-04-24] MEDS ORDERED: TRAM50TA PO (09:53)
[2021-04-24] MEDS ORDERED: OXYC10TA PO (09:53)
--- NOTE | 2021-04-24 09:56 | SNU/HH DC ---
DISCHARGE ORDERS DISCHARGE INFORMATION: DISCHARGE DATE: Apr 24, 2021 FINAL DIAGNOSIS HCAP A/C HYPOXIC HYPERCAPNIC RESPIRATORY FAILURE MORBID OBESITY JOSE CONDITION ON DISCHARGE: Stable CODE STATUS: Code Status: Full LONGTERM: SNF STAY <30 DAYS: Yes POST DISCHARGE ORDERS: ACTIVITY ORDERS: Activity as tolerated DIET AFTER DISCHARGE: Regular TREATMENT/EQUIPMENT ORDERS: Physical Therapy For: Evalulation/Treatment Occupational Therapy For: Evaluation/Treatment DISCHARGE MEDICATIONS: Home Meds Active Scripts Tramadol Hcl (TRAMADOL HCL) 50 Mg Tablet, 50 MG PO Q4HRS PRN for PAIN for 30 Day s, #180 TAB Prov:SAVANNAH LORENZ MD 04/24/21 Oxycodone Hcl (OXYCODONE HCL IMMED.RELEASE) 10 Mg Tablet, 1 TAB PO QIDPRN PRN for pain MDD 4 Tablet(s) for 30 Days, #120 TAB 0 Refills Prov:SAVANNAH LORENZ MD 04/24/21 Reported Medications Ipratropium/Albuterol Sulfate (DUONEB 0.5-3(2.5) MG/3 ML) 3 Ml Ampul.neb, 3 ML NEB PRN Q4HRS PRN for shortness of breath, EACH 04/22/21 Vits A and D/White Pet/Lanolin (A and D Ointment) 42.5 Gm Oint...g., 42.5 GM TP PRN PRN for skin integrety, MISC 04/22/21 Zinc Sulfate (Zinc-220) 50 Mg Capsule, 50 MG PO DAILYAC for , CAP 04/22/21 Bupropion Hcl (WELLBUTRIN XL) 150 Mg Tab.er.24h, 150 MG PO DAILY for , TAB.SR 04/22/21 Albuterol Sulfate (VENTOLIN HFA INHALER) 18 Gm Hfa.aer.ad, 2 PUFF INH PRN Q4HRS for , EACH 0 Refills 04/22/21 Multivits,Ca,Minerals/Iron/FA (Thera M Plus Tablet) 1 Each Tablet, 1 EACH PO DAILY for , TAB 04/22/21 Budesonide/Formoterol Fumarate (SYMBICORT 160-4.5 MCG INHALER) 10.2 Gm Hfa.aer.ad, 1 PUFF IH DAILY for , EACH 04/22/21 Spironolactone (SPIRONOLACTONE) 50 Mg Tablet, 50 MG PO DAILY for , TAB 04/22/21 Carboxymethylcellulos/Glycerin (REFRESH OPTIVE EYE DROPS) 15 Ml Drops, 1 DROP EACHEYE TID for , #15 ML 3 Refills 04/22/21 Prednisone (PREDNISONE) 20 Mg Tablet, 40 MG PO DAILY16 for , TAB 04/22/21 Pantoprazole Sodium (PANTOPRAZOLE SODIUM ) 40 Mg Tablet.dr, 40 MG PO DAILYAC for GERD, TAB 04/22/21 Nystatin (NYSTATIN) 15 Gm Oint...g., 15 GM TP PRN Q12HR for , MISC 04/22/21 Mupirocin (MUPIROCIN OINTMENT) 22 Gm Oint...g., 1 ALESSANDRA TP DAILY for WOUND CARE, #1 EACH 04/22/21 Polyethylene Glycol 3350 (MIRALAX) 17 Gm Powd.pack, 1 PKT PO PRN DAILY PRN for CONSTIPATION, PKT 04/22/21 Melatonin (MELATONIN) 3 Mg Tablet, 1 TAB PO QHS for , #30 TAB 2 Refills 04/22/21 Losartan Potassium (COZAAR ) 25 Mg Tablet, 25 MG PO HS for HYPERTENSION, TAB 04/22/21 Furosemide (LASIX) 80 Mg Tablet, 80 MG PO DAILY16 for , TAB 04/22/21 Hydralazine Hcl (HYDRALAZINE HCL) 25 Mg Tablet, 25 MG PO PRN Q8HRS PRN for hypertension, TAB 04/22/21 Ferrous Sulfate (FERROUS SULFATE) 325 Mg Tablet, 1 TAB PO BID for , #60 TAB 3 Refills 04/22/21 Doxycycline Hyclate (DOXYCYCLINE HYCLATE) 100 Mg Tablet, 100 MG PO BID for , TAB 04/22/21 Warfarin Sodium (WARFARIN SODIUM) 5 Mg Tablet, 10 MG PO QMWF for , #30 TAB 04/22/21 Warfarin Sodium (WARFARIN SODIUM) 3 Mg Tablet, 3 MG PO QMWF for , #30 TAB 04/22/21 Warfarin Sodium (WARFARIN SODIUM) 5 Mg Tablet, 12.5 MG PO QTUTHSASU for , #30 TAB 04/22/21 Cholecalciferol (Vitamin D3) (Vitamin D3 ) 25 Mcg Tablet, 25 MCG PO DAILY for SUPPLEMENT, TAB 1,000 UNITS = 25 MCG 04/22/21 Carvedilol (CARVEDILOL ) 6.25 Mg Tablet, 6.25 MG PO BIDWMEALS for CARDIAC, TAB 04/22/21 Betamethasone Valerate (BETAMETHASONE VALERATE) 15 Gm Cream..g., 15 GM TP BID for psoriasis, EACH 04/22/21 Atorvastatin Calcium (ATORVASTATIN CALCIUM) 40 Mg Tablet, 40 MG PO HS for FOR CHOLESTEROL, #30 TAB 0 Refills 04/22/21 Aspirin (ASPIRIN EC) 81 Mg Tablet.dr, 1 TAB PO DAILY for , #90 TAB 3 Refills 04/22/21 Ascorbic Acid (ASCORBIC ACID) 500 Mg Tablet, 500 MG PO DAILY for , TAB 04/22/21 Acetaminophen (ACETAMINOPHEN) 325 Mg Tablet, 2 TAB PO PRN Q6HRS PRN for pain or fever for 24 Days, #100 TAB 0 Refills 04/22/21 Discontinued Reported Medications Tramadol Hcl (TRAMADOL HCL) 50 Mg Tablet, 50 MG PO Q4HRS PRN for PAIN, TAB 04/22/21 Oxycodone Hcl (OXYCODONE HCL) 5 Mg Capsule, 10 MG PO QID for , TAB 0 Refills 04/22/21 SAVANNAH LORENZ MD Apr 24, 2021 09:56
--- NOTE | 2021-04-24 10:06 | NUR ---
SS following up with discharge planning. SS reviewed pt chart and discussed with pt RN. Pt is currently requiring oxygen at four liters nasal canula. Discharge orders received and phoned and faxed to [facility], ; fax [phone]. Pt will discharge today and return to [facility] at 1200 via [facility] transport. Pt, Pt's RN, and pt's family notified.
--- NOTE | 2021-04-24 10:36 | PDOC ---
PULMONARY PROGRESS NOTES DATE: 04/24/21 TIME: 10:34 Subjective Doing well on nasal cannula during the day with BiPAP at nighttime Vitals Vital Signs Date Time Temp Pulse Resp B/P (MAP) Pulse Ox O2 Delivery O2 Flow Rate FiO2 04/24/21 08:49 82 04/24/21 07:48 95 Nasal Cannula 4.0 04/24/21 07:00 97.7 19 157/72 (100) 97.7 General: Alert, No acute distress Lungs: Clear Cardiovascular: S1 Abdomen: Soft, Other (Morbidly obese) Extremities: Other (Lower extremity lymphedema) Skin: Warm Labs Laboratory Tests Test 04/22/21 10:43 04/23/21 06:20 04/24/21 06:20 Glucose (Fingerstick) 127 mg/dL (70-99) White Blood Count 8.2 x10^3/uL (4.0-11.0) 9.7 x10^3/uL (4.0-11.0) Red Blood Count 3.82 x10^6/uL (4.30-5.70) 4.07 x10^6/uL (4.30-5.70) Hemoglobin 9.5 g/dL (13.0-17.5) 9.9 g/dL (13.0-17.5) Hematocrit 30.0 % (39.0-53.0) 31.8 % (39.0-53.0) Mean Corpuscular Volume 78 fL (79-100) 78 fL (79-100) Mean Corpuscular Hemoglobin 25 pg (25-35) 24 pg (25-35) Mean Corpuscular Hemoglobin Concent 32 g/dL (31-37) 31 g/dL (31-37) Red Cell Distribution Width 18.9 % (11.5-14.5) 19.5 % (11.5-14.5) Platelet Count 381 x10^3/uL (140-400) 402 x10^3/uL (140-400) Neutrophils (%) (Auto) 77 % (31-73) Lymphocytes (%) (Auto) 14 % (24-48) Monocytes (%) (Auto) 9 % (0-9) Eosinophils (%) (Auto) 0 % (0-3) Basophils (%) (Auto) 0 % (0-3) Neutrophils # (Auto) 6.4 x10^3/uL (1.8-7.7) Lymphocytes # (Auto) 1.1 x10^3/uL (1.0-4.8) Monocytes # (Auto) 0.7 x10^3/uL (0.0-1.1) Eosinophils # (Auto) 0.0 x10^3/uL (0.0-0.7) Basophils # (Auto) 0.0 x10^3/uL (0.0-0.2) Prothrombin Time 21.7 SEC (11.7-14.0) 19.2 SEC (11.7-14.0) Prothromb Time International Ratio 1.9 (0.8-1.1) 1.6 (0.8-1.1) Sodium Level 139 mmol/L (136-145) 139 mmol/L (136-145) Potassium Level 4.1 mmol/L (3.5-5.1) 4.3 mmol/L (3.5-5.1) Chloride Level 95 mmol/L (98-107) 95 mmol/L (98-107) Carbon Dioxide Level > 45 mmol/L (21-32) > 45 mmol/L (21-32) Anion Gap (6-14) (6-14) Blood Urea Nitrogen 19 mg/dL (8-26) 20 mg/dL (8-26) Creatinine 0.8 mg/dL (0.7-1.3) 0.8 mg/dL (0.7-1.3) Estimated GFR (Cockcroft-Gault) 107.6 107.6 BUN/Creatinine Ratio 24 (6-20) 25 (6-20) Glucose Level 126 mg/dL (70-99) 126 mg/dL (70-99) Hemoglobin A1c 5.9 % (4.8-5.6) Calcium Level 8.9 mg/dL (8.5-10.1) 8.8 mg/dL (8.5-10.1) Total Bilirubin 0.9 mg/dL (0.2-1.0) 0.9 mg/dL (0.2-1.0) Aspartate Amino Transf (AST/SGOT) 9 U/L (15-37) 16 U/L (15-37) Alanine Aminotransferase (ALT/SGPT) 42 U/L (16-63) 46 U/L (16-63) Alkaline Phosphatase 135 U/L (46-116) 129 U/L (46-116) Total Protein 7.6 g/dL (6.4-8.2) 7.8 g/dL (6.4-8.2) Albumin 2.8 g/dL (3.4-5.0) 3.0 g/dL (3.4-5.0) Albumin/Globulin Ratio 0.6 (1.0-1.7) 0.6 (1.0-1.7) Laboratory Tests Test 04/24/21 06:20 White Blood Count 9.7 x10^3/uL (4.0-11.0) Red Blood Count 4.07 x10^6/uL (4.30-5.70) Hemoglobin 9.9 g/dL (13.0-17.5) Hematocrit 31.8 % (39.0-53.0) Mean Corpuscular Volume 78 fL (79-100) Mean Corpuscular Hemoglobin 24 pg (25-35) Mean Corpuscular Hemoglobin Concent 31 g/dL (31-37) Red Cell Distribution Width 19.5 % (11.5-14.5) Platelet Count 402 x10^3/uL (140-400) Prothrombin Time 19.2 SEC (11.7-14.0) Prothromb Time International Ratio 1.6 (0.8-1.1) Sodium Level 139 mmol/L (136-145) Potassium Level 4.3 mmol/L (3.5-5.1) Chloride Level 95 mmol/L (98-107) Carbon Dioxide Level > 45 mmol/L (21-32) Anion Gap (6-14) Blood Urea Nitrogen 20 mg/dL (8-26) Creatinine 0.8 mg/dL (0.7-1.3) Estimated GFR (Cockcroft-Gault) 107.6 BUN/Creatinine Ratio 25 (6-20) Glucose Level 126 mg/dL (70-99) Calcium Level 8.8 mg/dL (8.5-10.1) Total Bilirubin 0.9 mg/dL (0.2-1.0) Aspartate Amino Transf (AST/SGOT) 16 U/L (15-37) Alanine Aminotransferase (ALT/SGPT) 46 U/L (16-63) Alkaline Phosphatase 129 U/L (46-116) Total Protein 7.8 g/dL (6.4-8.2) Albumin 3.0 g/dL (3.4-5.0) Albumin/Globulin Ratio 0.6 (1.0-1.7) Medications Active Scripts Medications Dose Route/Sig Max Daily Dose Days Date Category Dose Instructions Duoneb 0.5-3(2.5) Mg/3 Ml (Albuterol/Ipratropium) 3 Ml Ampul.neb 3 Ml NEB PRN Q4HRS PRN 04/22/21 Reported A and D Ointment (Vits A and D/White Pet/Lanolin) 42.5 Gm Oint...g. 42.5 Gm TP PRN PRN 04/22/21 Reported Zinc-220 (Zinc Sulfate) 50 Mg Capsule 50 Mg PO DAILYAC 04/22/21 Reported Wellbutrin Xl (Bupropion Hcl) 150 Mg Tab.er.24h 150 Mg PO DAILY 04/22/21 Reported Ventolin Hfa Inhaler (Albuterol Sulfate) 18 Gm Hfa.aer.ad 2 Puff INH PRN Q4HRS 04/22/21 Reported Tramadol Hcl 50 Mg Tablet 50 Mg PO Q4HRS PRN 04/22/21 Reported Thera M Plus Tablet (Multivits,Ca,Minerals/Iron/FA) 1 Each Tablet 1 Each PO DAILY 04/22/21 Reported Symbicort 160-4.5 Mcg Inhaler (Budesonide/Formoterol Fumarate) 10.2 Gm Hfa.aer.ad 1 Puff IH DAILY 04/22/21 Reported Spironolactone 50 Mg Tablet 50 Mg PO DAILY 04/22/21 Reported Refresh Optive Eye Drops (Carboxymethylcellulos/Glycerin) 15 Ml Drops 1 Drop EACHEYE TID 04/22/21 Reported Prednisone 20 Mg Tablet 40 Mg PO DAILY16 04/22/21 Reported Pantoprazole Sodium (Pantoprazole Sodium) 40 Mg Tablet.dr 40 Mg PO DAILYAC 04/22/21 Reported Oxycodone Hcl 5 Mg Capsule 10 Mg PO QID 04/22/21 Reported Nystatin 15 Gm Oint...g. 15 Gm TP PRN Q12HR 04/22/21 Reported Mupirocin Ointment (Mupirocin) 22 Gm Oint...g. 1 Dennis TP DAILY 04/22/21 Reported Miralax (Polyethylene Glycol 3350) 17 Gm Powd.pack 1 Pkt PO PRN DAILY PRN 04/22/21 Reported Melatonin 3 Mg Tablet 1 Tab PO QHS 04/22/21 Reported Cozaar (Losartan Potassium) 25 Mg Tablet 25 Mg PO HS 04/22/21 Reported Lasix (Furosemide) 80 Mg Tablet 80 Mg PO DAILY16 04/22/21 Reported Hydralazine Hcl 25 Mg Tablet 25 Mg PO PRN Q8HRS PRN 04/22/21 Reported Ferrous Sulfate 325 Mg Tablet 1 Tab PO BID 04/22/21 Reported Doxycycline Hyclate 100 Mg Tablet 100 Mg PO BID 04/22/21 Reported Warfarin Sodium 5 Mg Tablet 10 Mg PO QMWF 04/22/21 Reported Warfarin Sodium 3 Mg Tablet 3 Mg PO QMWF 04/22/21 Reported Warfarin Sodium 5 Mg Tablet 12.5 Mg PO QTUTHSASU 04/22/21 Reported Vitamin D3 (Vitamin D) 25 Mcg Tablet 25 Mcg PO DAILY 04/22/21 Reported 1,000 UNITS = 25 MCG Carvedilol (Carvedilol) 6.25 Mg Tablet 6.25 Mg PO BIDWMEALS 04/22/21 Reported Betamethasone Valerate 15 Gm Cream..g. 15 Gm TP BID 04/22/21 Reported Atorvastatin Calcium 40 Mg Tablet 40 Mg PO HS 04/22/21 Reported Aspirin Ec (Aspirin) 81 Mg Tablet.dr 1 Tab PO DAILY 04/22/21 Reported Ascorbic Acid 500 Mg Tablet 500 Mg PO DAILY 04/22/21 Reported Acetaminophen 325 Mg Tablet 2 Tab PO PRN Q6HRS PRN 24 04/22/21 Reported Impression . 1. Acute on chronic hypercapnic respiratory failure, likely secondary to combination of cor pulmonale as well as possible pneumonia. 2. Morbidly obese with a body mass index of 125 and history of obstructive sleep apnea and obesity hypoventilation syndrome. The patient is not on CPAP or BiPAP. 3. Abnormal chest x-ray consistent with congestive heart failure, but cannot exclude pneumonia. 4. Mild leukocytosis. 5. History of deep venous thrombosis/ PE, for which he is on Coumadin with therapeutic INR. 6. The patient is updated on COVID vaccine. Plan . RECOMMENDATIONS: 1. Continue present BiPAP nightly with nasal cannula during the day.. ABG is significantly improved with compensated hypercapnia. 2. Patient has history of sleep apnea but he was noncompliant with CPAP in the past. He is willing to be retried on CPAP as an outpatient. I would recommend having an outpatient sleep study. 3. Diuresis. 4. Obtain echocardiogram. As outpatient 5. Empiric antibiotic, 6. Continue Coumadin and follow INR per PCP. 7. Discussed with Dr. Hampton. From a pulmonary standpoint he could be discharged back to correction SUNITA OVALLE MD Apr 24, 2021 10:36
[2021-04-24 11:00] VITALS: BP 167/82
--- NOTE | 2021-04-24 11:24 | PDOC ---
CARDIO Progress Notes Date and Time Date of Service 04/24/21 Time of Evaluation 1120 Subjective Subjective: No Chest Pain, No Palpitations, No Dizziness, Other (breathing better) Vitals Vitals Vital Signs Date Time Temp Pulse Resp B/P (MAP) Pulse Ox O2 Delivery O2 Flow Rate FiO2 04/24/21 08:49 82 04/24/21 07:48 95 Nasal Cannula 4.0 04/24/21 07:00 97.7 19 157/72 (100) 97.7 Weight Weight [ ] Input and Output Intake and Output Intake and Output 04/24/21 07:00 Intake Total 2030 ml Output Total 6500 ml Balance -4470 ml Intake Oral 1930 ml IV Total 100 ml Output Urine Total 6500 ml Laboratory Labs Laboratory Tests Test 04/24/21 06:20 White Blood Count 9.7 x10^3/uL (4.0-11.0) Red Blood Count 4.07 x10^6/uL (4.30-5.70) Hemoglobin 9.9 g/dL (13.0-17.5) Hematocrit 31.8 % (39.0-53.0) Mean Corpuscular Volume 78 fL (79-100) Mean Corpuscular Hemoglobin 24 pg (25-35) Mean Corpuscular Hemoglobin Concent 31 g/dL (31-37) Red Cell Distribution Width 19.5 % (11.5-14.5) Platelet Count 402 x10^3/uL (140-400) Prothrombin Time 19.2 SEC (11.7-14.0) Prothromb Time International Ratio 1.6 (0.8-1.1) Sodium Level 139 mmol/L (136-145) Potassium Level 4.3 mmol/L (3.5-5.1) Chloride Level 95 mmol/L (98-107) Carbon Dioxide Level > 45 mmol/L (21-32) Anion Gap (6-14) Blood Urea Nitrogen 20 mg/dL (8-26) Creatinine 0.8 mg/dL (0.7-1.3) Estimated GFR (Cockcroft-Gault) 107.6 BUN/Creatinine Ratio 25 (6-20) Glucose Level 126 mg/dL (70-99) Calcium Level 8.8 mg/dL (8.5-10.1) Total Bilirubin 0.9 mg/dL (0.2-1.0) Aspartate Amino Transf (AST/SGOT) 16 U/L (15-37) Alanine Aminotransferase (ALT/SGPT) 46 U/L (16-63) Alkaline Phosphatase 129 U/L (46-116) Total Protein 7.8 g/dL (6.4-8.2) Albumin 3.0 g/dL (3.4-5.0) Albumin/Globulin Ratio 0.6 (1.0-1.7) Physical Exam HEENT: Neck Supple W Full Motion Chest: Symmetric LUNGS: Other (diminished, on NC) Heart: RRR Abdomen: Other (obese ) Neurology: alert, oriented, follow commands Assessment Assessment 1. Acute on chronic respiratory failure; multifactorial with right heart failure, obesity-hypoventilation syndrome, JOSE, and possibly PNA. COVID negative 2. Acute on chronic diastolic CHF; appears compensated. Echo with preserved LV systolic function 3. PAFIB; new finding. presently AFIB with controlled rate. Rate controlled with metoprolol 4. Morbid obesity, hypoventilation syndrome, JOSE 5. Hypertension; controlled overall 6. Hyperlipidemia; statin 7. H/o DVT/PE; chronic OAC with warfarin Recommendations Continue metoprolol for better rate control BiPAP support at HS Warfarin for stroke prophylaxis. Weight loss Supportive care Justicifation of Admission Dx: Justifications for Admission: Justification of Admission Dx: Yes Comments: Acute on chronic respiratory failure Acute on chronic diastolic CHF PATRICK GAUTHIER APRN Apr 24, 2021 11:24
--- NOTE | 2021-04-24 12:29 | NUR ---
IV catheter and Smith catheter removed without complications
--- NOTE | 2021-04-24 12:30 | NUR ---
Discharge: Report called to [facility] [phone] spoke with USAMA Pineda. Phone and phone monorail charger operator with patient. Copy of chart sent with patient. patient assisted off of unit via cuong accompanied by NAA
--- NOTE | 2021-04-24 14:49 | CARD ---
MR#: [id number] Date of Study: 04/24/2021 Ordering Physician: PATRICK GAUTHIER, Referring Physician: PATRICK GAUTHIER, Tech: Aye Story [facility] APPROVED REPORT EXAM: Two-dimensional and M-mode echocardiogram with Doppler and color Doppler. Other Information Quality : Technically LimitedHR: 85bpm Rhythm : NSRTechnically limited study due to body habitus. INDICATION Dyspnea RISK FACTORS Hypertension Obesity Hyperlipidemia Diabetes 2D DIMENSIONS RVDd3.8 (2.9-3.5cm)Left Atrium(2D)3.3 (1.6-4.0cm) IVSd1.2 (0.7-1.1cm)Aortic Root(2D)3.3 (2.0-3.7cm) LVDd5.0 (3.9-5.9cm)LVOT Diameter3.0 (1.8-2.4cm) PWd1.4 (0.7-1.1cm)LVDs3.1 (2.5-4.0cm) FS (%) 37.9 %SV79.0 ml LVEF(%)67.8 (>50%) Aortic Valve AoV Peak Ovidio.192.8cm/sAoV VTI35.3cm AO Peak GR.14.9mmHgLVOT Peak Ovidio.124.2cm/s AO Mean GR.8mmHgAVA (VMAX)4.57cm2 Mitral Valve MV E Bxckisxs265.7cm/s Pulmonary Valve PV Peak Ueuubegm97.2cm/s Tricuspid Valve TR P. Vahvevtw813nf/sTR Peak Gr.46mmHg LEFT VENTRICLE The left ventricle is normal size. There is mild concentric left ventricular hypertrophy. The left ve ntricular systolic function is normal and the ejection fraction is within normal range. Estimated eje ction fraction 60%. There is normal LV segmental wall motion. Tissue Doppler imaging reveals moderate left ventricular diastolic dysfunction. RIGHT VENTRICLE The right ventricle is normal size. There is normal right ventricular wall thickness. The right ventr icular systolic function is normal. ATRIA The left atrium size is normal. The right atrium size is normal. The interatrial septum is intact wit h no evidence for an atrial septal defect or patent foramen ovale as noted on 2-D or Doppler imaging. AORTIC VALVE Not well visualized. Doppler and Color Flow revealed no significant aortic regurgitation. There is no significant aortic valvular stenosis. MITRAL VALVE The mitral valve is normal in structure and function. There is no evidence of mitral valve prolapse. There is no mitral valve stenosis. Doppler and Color Flow revealed no mitral valve regurgitation note d. TRICUSPID VALVE The tricuspid valve is normal in structure and function. Doppler and Color Flow revealed trace tricus pid regurgitation. Estimated PAP 45-50 mmHg. There is no tricuspid valve stenosis. PULMONIC VALVE Not well visualized. Doppler and Color Flow revealed no pulmonic valvular regurgitation. There is no pulmonic valvular stenosis. GREAT VESSELS The aortic root is normal in size. The ascending aorta is normal in size. The IVC was not visualized. PERICARDIAL EFFUSION There is no evidence of significant pericardial effusion. Critical Notification Critical Value: No <Conclusion> The left ventricular systolic function is normal and the ejection fraction is within normal range. E stimated ejection fraction 60%. There is normal LV segmental wall motion. Technically very difficult study. Signed by : Mehul Leroy, Electronically Approved : 04/24/2021 14:49:54
== END 2021-04-24 12:55 | DRG 189 ==
LOC: 6 SOUTH 01:34
PROVIDERS: ADMIT Internal Medicine; ATTEND Internal Medicine
PROC: 5A09357 Assistance with Respiratory Ventilation, Less than 24 Consecutive Hours, Continuous Positive Airway Pressure (ICD-10-PCS; principal; 2021-04-22)
PROC: 5A09357 Assistance with Respiratory Ventilation, Less than 24 Consecutive Hours, Continuous Positive Airway Pressure (ICD-10-PCS; 2021-04-23)
PROC: 5A09357 Assistance with Respiratory Ventilation, Less than 24 Consecutive Hours, Continuous Positive Airway Pressure (ICD-10-PCS; 2021-04-23)
DX: J96.21 Acute and chronic respiratory failure with hypoxia (principal); I50.33 Acute on chronic diastolic (congestive) heart failure; J18.9 Pneumonia, unspecified organism; E66.2 Morbid (severe) obesity with alveolar hypoventilation; Z68.43 Body mass index [BMI] 50.0-59.9, adult; J96.22 Acute and chronic respiratory failure with hypercapnia; Y95 Nosocomial condition; I48.0 Paroxysmal atrial fibrillation; I50.82 Biventricular heart failure; I11.0 Hypertensive heart disease with heart failure; E78.5 Hyperlipidemia, unspecified; F32.9 Major depressive disorder, single episode, unspecified; I89.0 Lymphedema, not elsewhere classified; K21.9 Gastro-esophageal reflux disease without esophagitis; Z87.11 Personal history of peptic ulcer disease; Z90.49 Acquired absence of other specified parts of digestive tract; Z86.718 Personal history of other venous thrombosis and embolism; Z86.711 Personal history of pulmonary embolism; Z79.01 Long term (current) use of anticoagulants
CPT/HCPCS: 36415; 36600; 80053; 82805; 82962; 83036; 83880; 84145; 85007; 85025; 85027; 85610; 93306; 94640; 94660; 94760; J1160; J1940; J2543; J7512; Q9956; G0378; J7626

== ENCOUNTER → 2021-06-05 | Outpatient (CLI) | payer OTHER ==
[2021-05-30 09:41] VITALS: BP 141/63
[~2021-06-05] MED LIST: ACET325T21 PO; ASCO500T3 PO; ASPI-886 PO; ATOR40TA59 PO; BETA15CR4 TP; BUDE10.2 IH; BUPR150T15 PO; CARB15DR3 EACHEYE; CARV6.2511 PO; CHOL10004 PO; DOXY100T PO; FERR325T14 PO; FURO80TA72 PO; HYDR-2868 PO; IPRA3AMP29 NEB; LOSA25TA PO; MELA3TAB4 PO; MULT-638 PO; MUPI22OI2 TP; NYST15OI TP; OXYC10TA PO; OXYC5CAP PO; PANT40TA77 PO; POLY17PO29 PO; PRED20TA PO; SPIR50TA4 PO; TRAM50TA PO; VENTOLIN HFA18 GM INH; VITS42.55 TP; WARF-31 PO; WARF3TAB50 PO; ZINC220C4 PO
--- NOTE | 2021-06-06 14:49 | SLEEP ---
DATE OF STUDY: 06/05/2021 HOME POLYSOMNOGRAM REPORT OBJECTIVE: The patient is a 41-year-old male with excessive somnolence and snoring. Height 5 feet 7 inches, weight 900 pounds, body mass index 140.9. Randlett sleep score 15. There are total of 106 respiratory events for an apnea-hypopnea index of 11.3 events per hour. The minimum oxygen saturation is 60%. No significant cardiac arrhythmias are observed. IMPRESSION: Abnormal home polysomnogram showing obstructive sleep apnea and hypopnea. RECOMMENDATIONS: 1. The patient could be established on a variable CPAP machine such as setting of 5-15 cm. 2. He should of course pursue weight loss and avoid sedatives and alcohol. Thank you for letting us help with the patient's care. MELVI DR: Faisal TID: [id number] CC: SANDRA CLIFFORD MD
== END ==
LOC: RT 13:05
PROVIDERS: ATTEND Internal Medicine
DX: G47.33 Obstructive sleep apnea (adult) (pediatric) (principal)
CPT/HCPCS: G0399